=== PATIENT | male | born 1980 | race Caucasian/White ===

== ENCOUNTER 2022-06-23 16:09 | Emergency (ER) | payer OTHER, SELFPAY ==
--- NOTE | ~2022-06-23 | XR_ITS ---
EXAMINATION: XR WRIST, LEFT XR HAND, LEFT CLINICAL INFORMATION: Left wrist and hand pain COMPARISON: None available. TECHNIQUE: PA, lateral, and oblique views of the left wrist and PA, lateral, and oblique views of the left hand FINDINGS: LEFT WRIST: The bones and soft tissues are normal. No fracture. Alignment is anatomic. Joint spaces are maintained. No erosions or soft tissue calcifications. LEFT HAND: The bones are normal. No fracture. Alignment is anatomic. Joint spaces are maintained. No erosions or soft tissue calcifications. Marked dorsal soft tissue swelling seen of the hand. XR/XR hand wrist LT IMPRESSION: Soft tissue swelling of the hand. No acute osseous process in the hand or wrist
[2022-06-23 16:12] VITALS: BP 152/95; PULSE 93; RESP 20; TEMP 36.4; O2SAT 98; BMI 28.7
--- NOTE | 2022-06-23 16:13 | ED.UPPEXIN ---
HPI - Extremity Injury (Upper) General Chief Complaint: Extremity Injury, Upper <MIKE Roy Last Filed: 06/23/22 16:17> Stated Complaint: ? broken hand, work injury <MIKE Roy Last Filed: 06/23/22 16:17> Time Seen by Provider: 06/23/22 16:27 <MIKE Roy Last Filed: 06/23/22 16:17> Source: patient <MIKE Worthington Last Filed: 06/23/22 17:50> Mode of arrival: ambulatory <MIKE Worthington Last Filed: 06/23/22 17:50> Limitations: no limitations <MIKE Worthington Last Filed: 06/23/22 17:50> History of Present Illness HPI narrative: Patient is a 42 year old assigned male at with no reported medical history presenting to the emergency department today with left hand pain. Patient states that he accidentally crushed his hand in the door of his truck at work and is still having pain. Patient denies any loss of consciousness or head strike during the incident. Patient denies any dizziness, lightheadedness, abdominal pain, nausea, vomiting, fever, chills, blurry vision, double vision, loss of vision, chest pain, difficulty breathing, shortness of breath, back pain, night sweats, pain with urination, increased urinary frequency, increased urinary urgency, blood in his urine or stool, syncope or a near syncopal episode, bowel incontinence, bladder incontinence, bowel retention, bladder retention, or any other complaints at this time. <MIKE Worthington Last Filed: 06/23/22 17:50> MD complaint: injury to: left and hand <MIKE Worthington Last Filed: 06/23/22 17:50> Onset (ago): hour(s) (2) <MIKE Worthington Last Filed: 06/23/22 17:50> Place: work <MIKE Worthington Last Filed: 06/23/22 17:50> Severity: mild <MIKE Worthington Last Filed: 06/23/22 17:50> Severity scale (1-10): 2 <MIKE Worthington Last Filed: 06/23/22 17:50> Relieving factors: none <MIKE Worthington - Last Filed: 06/23/22 17:50> Exacerbating factors: none <MIKE Worthington - Last Filed: 06/23/22 17:50> Context: direct blow <MIKE Worthington - Last Filed: 06/23/22 17:50> Associated symptoms: denies other symptoms <MIKE Worthington - Last Filed: 06/23/22 17:50> Related Data Allergies/Adverse Reactions: Allergies Allergy/AdvReac Type Severity Reaction Status Date / Time No Known Allergies Allergy Verified 06/23/22 16:15 <MIKE Roy - Last Filed: 06/23/22 16:17> Review of Systems Constitutional: Constitutional: Reports no additional constitutional complaints, Denies chills, Denies fever(s) and Denies night sweats <MIKE Worthington - Last Filed: 06/23/22 17:50> Eyes: Eyes: Reports no additional eye complaints, Denies blurry vision, Denies change in vision, Denies diplopia, Denies eye discharge, Denies loss of vision and Denies eye pain <MIKE Worthington - Last Filed: 06/23/22 17:50> ENT: Denies dizziness <MIKE Worthington - Last Filed: 06/23/22 17:50> Cardiovascular: Cardiovascular: Reports no additional cardiovascular complaints, Denies chest pain, Denies lightheadedness, Denies Loss of Consciousness and Denies dyspnea <MIKE Worthington - Last Filed: 06/23/22 17:50> Respiratory: Respiratory: Reports no additional respiratory complaints and Denies dyspnea <MIKE Worthington - Last Filed: 06/23/22 17:50> Gastrointestinal: Gastrointestinal: Reports no additional gastrointestinal complaints, Denies abdominal pain, Denies melena, Denies hematochezia, Denies change in bowel habits and Denies change in stool character <MIKE Worthington - Last Filed: 06/23/22 17:50> Genitourinary: Genitourinary: Reports no additional male genitourinary complaints, Denies hematuria, Denies oliguria, Denies difficulty urinating, Denies dysuria, Denies urinary frequency, Denies urinary hesitancy, Denies urinary incontinence and Denies urinary urgency <MIKE Worthington - Last Filed: 06/23/22 17:50> Musculoskeletal: Musculoskeletal: Reports no additional musculoskeletal complaints, Denies numbness and Denies tingling <MIKE Worthington - Last Filed: 06/23/22 17:50> Comments: left hand pain <MIKE Worthington - Last Filed: 06/23/22 17:50> Neurologic: Denies dizziness, Denies loss of vision, Denies numbness and Denies tingling <MIKE Worthington - Last Filed: 06/23/22 17:50> Psychiatric: Psychiatric: Reports no additional psychiatric complaints <MIKE Worthington - Last Filed: 06/23/22 17:50> Endocrine: Endocrine: Reports no additional endocrine complaints <MIKE Worthington - Last Filed: 06/23/22 17:50> Hematologic/Lymphatic: Hematologic/Lymphatic: Reports no additional hematologic/lymphatic complaints <MIKE Worthington - Last Filed: 06/23/22 17:50> Allergic/Immunologic: Allergic/Immunologic: Reports no additional allergic/immunologic complaints <MIKE Worthington - Last Filed: 06/23/22 17:50> [facility] Past Medical History Attestation statement: The following information was validated with the patient. <MIKE Worthington - Last Filed: 06/23/22 17:50> Source: old records reviewed and nursing notes reviewed <MIKE Worthington - Last Filed: 06/23/22 17:50> Social History Social History: Social History Advance Directives: No Advance Directives Information Provided: No <MIKE Roy - Last Filed: 06/23/22 16:17> Physical Exam Vital Signs: Vital Signs: Last Vital Signs Temp 97.6 F 06/23/22 16:12 Pulse 93 06/23/22 16:12 Resp 20 06/23/22 16:12 BP 152/95 H 06/23/22 16:12 Pulse Ox 98 06/23/22 16:12 O2 Del Method Room Air 06/23/22 16:12 BMI result Body Mass Index 28.7 <MIKE Roy - Last Filed: 06/23/22 16:17> Vital Signs: Last Vital Signs Temp 97.6 F 06/23/22 16:12 Pulse 93 06/23/22 16:12 Resp 20 06/23/22 16:12 BP 152/95 H 06/23/22 16:12 Pulse Ox 98 06/23/22 16:12 O2 Del Method Room Air 06/23/22 16:12 BMI result Body Mass Index 28.7 <MIKE Worthington - Last Filed: 06/23/22 17:50> Const: General: cooperative, no acute distress, alert and awake <MIKE Worthington - Last Filed: 06/23/22 17:50> Nutritional Appearance: well nourished <MIKE Worthington - Last Filed: 06/23/22 17:50> Orientation/consciousness: patient oriented x3 <MIKE Worthington - Last Filed: 06/23/22 17:50> Limitations: no limitations <MIKE Worthington - Last Filed: 06/23/22 17:50> HEENT: Head: Yes normal to inspection and Yes atraumatic <MIKE Worthington - Last Filed: 06/23/22 17:50> Ears: hearing grossly normal bilaterally and external ears normal <MIKE Worthington - Last Filed: 06/23/22 17:50> General nose exam: Normal external nose present, no nasal discharge noted and no epistaxis <MIKE Worthington - Last Filed: 06/23/22 17:50> Face and sinus: Yes normal facial exam, No abrasion and No laceration <MIKE Worthington - Last Filed: 06/23/22 17:50> Mouth: Normal oral and palatal mucosa present, no drooling and no muffled voice <MIKE Worthington - Last Filed: 06/23/22 17:50> Eyes: General: appearance normal, both eyes and all related structures <MIKE Worthington - Last Filed: 06/23/22 17:50> Periorbital: periorbital findings normal <MIKE Worthington - Last Filed: 06/23/22 17:50> Eyelids: Yes eyelids normal <Audra Olmstead PA - Last Filed: 06/23/22 17:50> Conjunctivae: conjunctivae normal <Audra Olmstead PA - Last Filed: 06/23/22 17:50> Pupils: Equal, round and reactive pupils present <Audra Olmstead, PA - Last Filed: 06/23/22 17:50> EOM: EOMs intact bilaterally <Audra Olmstead, PA - Last Filed: 06/23/22 17:50> Neck: Neck: Yes normal visual inspection, Yes full ROM and Yes no lymphadenopathy <Audra Olmstead, PA - Last Filed: 06/23/22 17:50> Chest: Chest palpation & inspection: normal inspection of the chest <Audra Olmstead PA - Last Filed: 06/23/22 17:50> Resp: Effort & Inspection: normal respiratory effort and able to speak in complete sentences <Audra Olmstead PA - Last Filed: 06/23/22 17:50> GI: Inspection: Yes normal to inspection <Audra Olmstead PA - Last Filed: 06/23/22 17:50> Neuro: General: patient oriented x3 and moves all extremities <Audra Olmstead PA - Last Filed: 06/23/22 17:50> Cranial nerves: Yes Equal, round and reactive pupils present <Audra Olmstead PA - Last Filed: 06/23/22 17:50> Cognition (Neuro): normal cognition <Audra Olmstead PA - Last Filed: 06/23/22 17:50> Motor exam (neuro): 5/5 motor strength present throughout <Audra Olmstead PA - Last Filed: 06/23/22 17:50> Sensory Exam: Normal double simultaneous stimulation for sensation <Audra Olmstead PA - Last Filed: 06/23/22 17:50> Coordination: [id number] test normal <Audra Olmstead PA - Last Filed: 06/23/22 17:50> Extrem: Other: minimal left hand swelling with small abrasion to the radiodorsal aspect of the left hand <Audra Olmstead PA - Last Filed: 06/23/22 17:50> General: Yes full ROM and Yes capillary refill normal <Audra Olmstead PA - Last Filed: 06/23/22 17:50> Psych: Appearance: grossly normal <MIKE Worthington Last Filed: 06/23/22 17:50> Mental Status: mental status grossly normal <MIKE Worthington Last Filed: 06/23/22 17:50> Affect: normal affect <MIKE Worthington Last Filed: 06/23/22 17:50> Attitude: cooperative <MIKE Worthington Last Filed: 06/23/22 17:50> Thought process: Normal thought process present <MIKE Worthington Last Filed: 06/23/22 17:50> Thought content: Normal thought content present <MIKE Worthington Last Filed: 06/23/22 17:50> Insight: Good insight present (Psych) <MIKE Worthington Last Filed: 06/23/22 17:50> Course Course Course Narrative: RME: 42yo M w/no sig PMHx c/o crushing L hand in [employer] door around 14:30. +swelling/ecchymosis to L hand and wrist with diffuse ttp. +ring to 4th digit removed in triage. NV intact XRs ordered Full HPI, ROS and PE to be performed by primary ED provider. <MIKE Roy - Last Filed: 06/23/22 16:17> Medical Decision Making Medical Decision Making MDM Narrative: Patient is a 42 year old assigned male at with no reported medical history presenting to the emergency department today with left hand pain. Patient's physical exam was as noted in the physical exam portion of this chart. Patient's left hand x-ray showed no acute process. Patient's tetanus is up to date. I explained my physical exam findings as well as all test results to the patient. I answered all questions asked by the patient. I stressed the importance of the patient taking his medication as prescribed. I stressed the importance of the patient following up with his primary care provider. I stressed the importance of the patient returning to the emergency department immediately if his symptoms were to worsen or if he were to develop any dizziness, shortness of breath, difficulty breathing, chest pain, blurry vision, loss of vision, nausea, vomiting, abdominal pain, fever, chills, back pain, or any other complaints. Patient verbalized agreement and understanding with this treatment plan and discharge. <MIKE Worthington - Last Filed: 06/23/22 17:50> Differential Diagnosis Differential Diagnoses: The differential diagnosis associated with the presentation includes <MIKE Worthington Last Filed: 06/23/22 17:50> left hand injury, left hand pain <MIKE Worthington - Last Filed: 06/23/22 17:50> Admission/Observation Consideration of admission/observation: Escalation of care including admission/observation considered <MIKE Worthington Last Filed: 06/23/22 17:50> Had patient's left hand imaging showed something requiring surgical intervention, he would have been admitted. <MIKE Worthington Last Filed: 06/23/22 17:50> Independent Interpretation I performed an independent interpretation of an: Plain X-Ray <MIKE Worthington - Last Filed: 06/23/22 17:50> Interpretation: My interpretation is in agreement with the radiologist's impression of this imaging study. EXAMINATION: XR WRIST, LEFT XR HAND, LEFT CLINICAL INFORMATION: Left wrist and hand pain? COMPARISON: None available.? TECHNIQUE: PA, lateral, and oblique views of the left wrist and PA, lateral, and oblique views of the left hand FINDINGS: LEFT WRIST: The bones and soft tissues are normal. No fracture. Alignment is anatomic. Joint spaces are maintained. No erosions or soft tissue calcifications.? LEFT HAND: The bones are normal. No fracture. Alignment is anatomic. Joint spaces are maintained. No erosions or soft tissue calcifications. Marked dorsal soft tissue swelling seen of the hand. XR/XR hand wrist LT IMPRESSION: Soft tissue swelling of the hand. No acute osseous process in the hand or wrist Dictated By: Leroy Brown MD Signed By: Electronically signed by Leroy Brown MD 06/23/22 0410 <MIKE Worthington - Last Filed: 06/23/22 17:50> Discharge Plan Discharge Clinical Impression: Crush injury <IMKE Roy - Last Filed: 06/23/22 16:17> Patient Disposition: Home, Self-Care <MIKE Roy - Last Filed: 06/23/22 16:17> Additional Instructions: You may use the hand as tolerated. Follow up with your primary care provider. Return to the emergency department immediately if your symptoms worsen or if you develop any dizziness, shortness of breath, difficulty breathing, chest pain, blurry vision, loss of vision, nausea, vomiting, abdominal pain, fever, chills, back pain, or any other complaints. <MIKE Roy - Last Filed: 06/23/22 16:17> Referrals: Tereso Villatoro III, MD [Primary Care Provider] - <MIKE Roy - Last Filed: 06/23/22 16:17> Stand Alone Forms: Work/School Release <MIKE Roy - Last Filed: 06/23/22 16:17> Interventions: ED Discharge Assessment Last Done: 06/23/22 17:44 <MIKE Roy - Last Filed: 06/23/22 16:17> Print Language: [place] Korean <MIKE Roy - Last Filed: 06/23/22 16:17>
== END 2022-06-23 17:46 | disposition home or self-care (01) ==
PROVIDERS: Emergency Provider Student in an Organized Health Care Education/Training Program; PCP Internal Medicine
DX: S69.92XA Unspecified injury of left wrist, hand and finger(s), initial encounter (principal); W23.1XXA Caught, crushed, jammed, or pinched between stationary objects, initial encounter; Y93.9 Activity, unspecified; Y92.481 Parking lot as the place of occurrence of the external cause; Y99.0 Civilian activity done for income or pay
CPT/HCPCS: 73110; 73130; 99283

== ENCOUNTER 2023-12-28 23:42 | Emergency (ER) | payer OTHER, SELFPAY ==
--- NOTE | 2023-12-28 23:44 | ECG_ITS ---
Test Reason : CP Blood Pressure : / mmHG Vent. Rate : 073 BPM Atrial Rate : 073 BPM P-R Int : 166 ms QRS Dur : 080 ms QT Int : 380 ms P-R-T Axes : 059 047 062 degrees QTc Int : 418 ms Normal sinus rhythm Normal ECG No previous ECGs available Referred By: Generic ED Physician Electronically Signed By:MALLY NJ MD
[2023-12-28 23:53] VITALS: BP 155/80; PULSE 74; RESP 18; TEMP 36.9; O2SAT 98; BMI 30.3
[2023-12-29] VITALS: BP 152/86; PULSE 70; RESP 12; TEMP 36.8; O2SAT 97
[2023-12-29 00:07] LABS: MANUAL DIFF FLAG NO
[2023-12-29 00:10] LABS: Basophils Absolute Auto 0.2 X10*3/uL (0.0-0.2); Basophils Percent Auto 1.1 % (0-2); Eosinophils Absolute Auto 0.4 X10*3/uL (0.0-0.4); Eosinophils Percent Auto 3.1 % (0-4); Hematocrit 46.7 % (42.0-52.0); Imm Gran Abs Auto 0.05 X10*3/uL (0.00-0.03); Imm Gran Pct Auto 0.4 % (0.0-0.4); Lymphocytes Absolute Auto 2.1 X10*3/uL (1.2-4.9); Lymphocytes Percent Auto 15.6 % (20-40); Mean Corpuscular HGB Conc 34.3 g/dl (31.0-36.0); Mean Corpuscular Hemoglobin 29.9 pg (27.0-33.0); Mean Corpuscular Volume 87.3 fL (80.0-98.0); Mean Platelet Volume 8.9 fL (9.4-12.4); Monocytes Absolute Auto 0.9 X10*3/uL (0.1-1.2); Monocytes Percent Auto 6.6 % (2-11); Neutrophils Absolute Auto 9.8 x10*3/uL (2.0-8.3); Neutrophils Percent Auto 73.2 % (45-73); Platelet Count 262 X10*3/uL (160-400); Red Blood Count 5.35 X10*6/uL (4.60-5.80); Red Cell Distribution Width 14.3 % (11.0-16.0); White Blood Count 13.4 X10*3/uL (4.8-10.8)
[2023-12-29 00:22] LABS: Alanine Aminotransferase 28 U/L (0-40); Albumin Level 4.6 g/dL (3.5-5.0); Alkaline Phosphatase 99 U/L (39-117); Anion Gap 15 (12-20); Aspartate Amino Transferase 31 U/L (5-37); Bilirubin Total 0.4 mg/dL (0.0-1.0); Blood Urea Nitrogen 14 mg/dL (9-16); Calcium 9.5 mg/dL (8.4-10.2); Carbon Dioxide 25 mmol/L (22-29); Chloride 108 mmol/L (96-108); Creatinine Clr Calc Pharmacy 77.8; Estimated Glomerular Filt Rate 54; Glucose Random 135 mg/dL (60-115); Sodium 144 mmol/L (135-145); Total Protein 7.9 g/dL (6.5-8.0)
[2023-12-29 00:29] LABS: Troponin-I High Sensitivity < 2.7 ng/L (<3.5-35.0)
--- NOTE | 2023-12-29 00:55 | ED_ITS ---
HPI - Chest Pain General Chief Complaint: Chest Pain Stated Complaint: chest pain Time Seen by Provider: 12/29/23 00:38 Source: patient Mode of arrival: ambulatory Limitations: no limitations History of Present Illness ED Provider: deyanira ALVAREZ narrative: Patient's history of high cholesterol no known coronary artery disease comes here for chest pain started 22:30 while at rest which is localized to mid chest reproducible increases on deep breaths felt/short of breath but saturating 98 % at room air no cough no radiation of the pain patient feels heavy in the chest which is continuous initial EKG and cardiac enzymes are negative patient has similar pain few weeks ago Related Data Allergies Allergy/AdvReac Type Severity Reaction Status Date / Time No Known Allergies Allergy Verified 12/28/23 23:55 Review of Systems 2 Review of Systems: Yes all other systems are reviewed and are negative [facility] Social History Social History Smoked in Last 30 Days: Yes Substance Use Type: Other Substance Use Frequency: Chronic Longstanding Any prior treatment program specific to substance use: Yes Advance Directives: No Do you have a plan to hurt others: No Plan Physical Exam 2 Vital Signs: Vital Signs: Last Vital Signs Temp 99.2 F 12/29/23 03:07 Pulse 96 12/29/23 03:07 Resp 20 12/29/23 03:07 BP 108/88 12/29/23 03:07 Pulse Ox 99 12/29/23 03:07 O2 Del Method Room Air 12/29/23 03:07 BMI result Body Mass Index 30.3 Appearance: Alert. Oriented X3. No acute distress. Eyes: No pallor or icterus ENT: Pharynx normal. Oral Mucosa moist Neck: Normal inspection. Neck supple. CVS: Normal heart rate and rhythm. Pulses normal. Reproducible mid chest pain Respiratory: No respiratory distress. Equal air entry bilateral, no wheezing/rales/rhonchi Abdomen: Soft and nontender. Bowel sounds are present, no mass palpable, no CVA tenderness Skin: Skin warm and dry. Normal skin color. Normal skin turgor. Extremities: No lower extremity edema. No calf tenderness Neuro: Oriented X 3. No motor deficit. No sensory deficit.No cerebellar signs , cranial nerves II-XII intact Medications Administered Discontinued Medications Generic Name Dose Route Start Last Admin Trade Name Freq PRN Reason Stop Dose Admin Aspirin 162 mg 11/10/24 01:43 12/29/23 01:56 Aspirin Enteric Coated 81 Mg Tablet. PO 12/29/23 01:44 162 mg ONCE ONE Administration Oxycodone HCl 5 mg 12/29/23 01:43 12/29/23 01:56 Oxycodone Hcl Immed Release 5 Mg Tablet PO 12/29/23 01:44 5 mg ONCE ONE Administration Medical Decision Making Medical Decision Making [facility] Narrative: Patient with atypical chest pain 2 sets of cardiac enzymes negative EKG without ischemic changes discharge patient home advised to follow up with primary care doctor Differential Diagnosis Differential Diagnoses: The differential diagnosis associated with the presentation includes Lab Data [facility] Lab Attestation statement: I reviewed the patient's lab results. 12/29/23 00:03 12/29/23 00:03 Labs: Lab Results 12/29/23 12/29/23 Range/Units 00:03 02:05 WBC 13.4 H (4.8-10.8) X10*3/uL RBC 5.35 (4.60-5.80) X10*6/uL Hgb 16.0 (14.0-18.0) g/dl Hct 46.7 (42.0-52.0) % MCV 87.3 (80.0-98.0) fL MCH 29.9 (27.0-33.0) pg MCHC 34.3 (31.0-36.0) g/dl RDW 14.3 (11.0-16.0) % Plt Count 262 (160-400) X10*3/uL MPV 8.9 L (9.4-12.4) fL Immature Gran % (Auto) 0.4 (0.0-0.4) % Neut % (Auto) 73.2 H (45-73) % Lymph % (Auto) 15.6 L (20-40) % Page % (Auto) 6.6 (2-11) % Eos % (Auto) 3.1 (0-4) % Baso % (Auto) 1.1 (0-2) % Lymph # (Auto) 2.1 (1.2-4.9) X10*3/uL Page # (Auto) 0.9 (0.1-1.2) X10*3/uL Eos # (Auto) 0.4 (0.0-0.4) X10*3/uL Baso # (Auto) 0.2 (0.0-0.2) X10*3/uL Abs Immat Gran (auto) 0.05 H (0.00-0.03) X10*3/uL Absolute Neuts (auto) 9.8 H (2.0-8.3) x10*3/uL Absolute Nucleated RBC 0.000 (0.0-0.012) X10*3/uL Nucleated RBC % (auto) 0.0 (0.0-0.2) /100WBC Sodium 144 (135-145) mmol/L Potassium 4.0 (3.3-5.1) mmol/L Chloride 108 (96-108) mmol/L Carbon Dioxide 25 (22-29) mmol/L Anion Gap 15 (12-20) BUN 14 (9-16) mg/dL Creatinine 1.45 H (0.5-1.4) mg/dL Estim Creat Clear Calc 77.8 Estimated GFR 54 Random Glucose 135 H (60-115) mg/dL Calcium 9.5 (8.4-10.2) mg/dL Total Bilirubin 0.4 (0.0-1.0) mg/dL AST 31 (5-37) U/L ALT 28 (0-40) U/L Alkaline Phosphatase 99 (39-117) U/L Troponin I High Sens < 2.7 < 2.7 (<3.5-35.0) ng/L Total Protein 7.9 (6.5-8.0) g/dL Albumin 4.6 (3.5-5.0) g/dL Independent Interpretation I performed an independent interpretation of an: EKG Interpretation: Normal sinus rhythm heart rate 73 beats per minute normal interval normal axis no acute ST-T no acute ischemia Discharge Plan Discharge Clinical Impression: Chest pain Patient Disposition: Home, Self-Care Instructions: Chest Pain (ED) Additional Instructions: At this time there is no significant evidence to suggest impending heart attack as the cause of your chest pain Continue aspirin and follow up with your PCP for further evaluation as scheduled Report to the ER if chest pain gets worse or not better Interventions: ED Discharge Assessment Last Done: 12/29/23 03:07 Discharge Date/Time: 12/29/23 03:11 Print Language: Bengali
[2023-12-29 01:36] VITALS: BP 138/73; PULSE 61; RESP 12; TEMP 36.4; O2SAT 97
[2023-12-29] MEDS: oxyCODONE HCl Immed Release 5 MG TABLET PO (01:56)
[2023-12-29] MEDS: Aspirin Enteric Coated 81 MG TABLET.DR 162 MG PO (01:56)
[2023-12-29 01:58] VITALS: BP 129/72; PULSE 65; RESP 13; O2SAT 97
[2023-12-29 02:00] VITALS: BP 108/88; PULSE 96; RESP 20; TEMP 37.3; O2SAT 99
[2023-12-29 02:38] LABS: Troponin-I High Sensitivity < 2.7 ng/L (<3.5-35.0)
[2023-12-29 03:07] VITALS: BP 108/88; PULSE 96; RESP 20; TEMP 37.3; O2SAT 99
== END 2023-12-29 03:11 | disposition home or self-care (01) ==
PROVIDERS: Emergency Provider Internal Medicine; PCP Internal Medicine
DX: R07.89 Other chest pain (principal); Z79.899 Other long term (current) drug therapy
CPT/HCPCS: 36415; 80053; 84484; 85025; 93005; 99285

== ENCOUNTER → 2023-12-28 23:44 | Outpatient (BNV) | payer OTHER, SELFPAY | PROVIDERS: Emergency Provider Internal Medicine; PCP Internal Medicine; Visit Provider Internal Medicine Cardiovascular Disease | DX: R07.9 Chest pain, unspecified (principal) | CPT/HCPCS: 93010 ==